=== PATIENT | female | born 2005 | race Caucasian/White ===

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

== ENCOUNTER 2024-03-20 17:58 | Emergency (ER) | payer OTHER ==
[~2024-03-20] VITALS: Ht 160 cm; Wt 49.0 kg
[2024-03-20 18:15] VITALS: BP 124/82; PULSE 98; RESP 18; TEMP 98.7; O2SAT 99
[2024-03-20] MEDS: ONDANSETRON 4 MG ODT PO ONE (18:51)
[2024-03-20 19:00] VITALS: O2SAT 99
[2024-03-20] MEDS ORDERED: ONDA-188 SL (19:29)
== END 2024-03-20 19:33 | disposition home or self-care (01) ==
LOC: MED 17:58
DX: K29.70 Gastritis, unspecified, without bleeding (principal); Z79.899 Other long term (current) drug therapy
CPT/HCPCS: 99283; Q0162